=== PATIENT | male | born 1945 | race African-American/Black ===

== ENCOUNTER 2016-10-18 17:30 | Inpatient (IN) | payer MEDICARE, MEDICAID ==
[~2016-10-18] VITALS: Ht 182.9 cm; Wt 80.7 kg
[~2016-10-18 17:30] MED LIST: CLON0.1T14 PO; IPRA3AMP9 INH; KEPP500 PO; LEVO250T2 PO; LEVVL SUBCUT; LOT10 PO; Thiamine Hcl PO; Tramadol Hcl PO; [UNRECOGNIZED DRUG - REMARK] XX
[2016-10-18 18:24] VITALS: BP 163/83
[2016-10-18 19:06] VITALS: BP 163/83
[2016-10-18 20:00] VITALS: BP 150/94
[2016-10-18 20:30] VITALS: BP 110/68
[2016-10-18] MEDS ORDERED: HYDROCODONE/ACETAMINOPHEN 5/325MG TABLET PO PRN (20:30)
[2016-10-18] MEDS ORDERED: CLONIDINE 0.1MG TABLET PO PRN ×2 (20:30)
[2016-10-18] MEDS ORDERED: DOCUSATE SODIUM 100MG CAPSULE PO PRN (20:30)
[2016-10-18] MEDS ORDERED: ACETAMINOPHEN 650MG SUPP PR PRN (20:30)
[2016-10-18] MEDS ORDERED: GUAIFENESIN 200MG/10ML SUGAR FREE UDC PO PRN (20:30)
[2016-10-18] MEDS ORDERED: ACETAMINOPHEN 650MG/20.3ML UDC GT PRN (20:30)
[2016-10-18] MEDS ORDERED: ONDANSETRON HCL 4MG/2ML VIAL IV PRN (20:30)
[2016-10-18] MEDS ORDERED: IPRATROPIUM/ALBUTEROL 0.5-3(2.5)MG/3ML NEB INH PRN (20:30)
[2016-10-18] MEDS ORDERED: NA PHOS,M-B/NA PHOS,DI-BA ENEMA 118ML PR PRN (20:30)
[2016-10-18] MEDS ORDERED: DIPHENHYDRAMINE 50MG/ML VIAL IV PRN (20:30)
[2016-10-18] MEDS ORDERED: MAGNESIUM/ALUMINUM HYDROXIDE/SIMETHICONE 30ML UDC PO PRN (20:30)
[2016-10-18] MEDS: BENAZEPRIL 10MG TABLET PO SCH (20:30)
[2016-10-18] MEDS: SODIUM CHLORIDE 0.9% INJ 3ML FLUSH IVF SCH (22:29)
[2016-10-18] MEDS: ACETAMINOPHEN 325MG TABLET PO PRN (22:29)
[2016-10-18] MEDS: LEVETIRACETAM 500MG TABLET PO SCH (22:29)
[2016-10-19] MEDS: IPRATROPIUM/ALBUTEROL 0.5-3(2.5)MG/3ML NEB HHN SCH ×3 (03:19→21:25)
[2016-10-19 06:48] LABS: HEMATOCRIT. 37.2 % (42.0-52.0); HEMOGLOBIN. 12.8 g/dL (14.0-18.0); MEAN CORPUSCULAR HEMOGLOBIN 32.9 pg (28.0-32.0); MEAN CORPUSCULAR HGB CONC 34.5 g/dL (31.0-37.0); MEAN CORPUSCULAR VOLUME 95.5 fL (80.0-94.0); MEAN PLATELET VOLUME 7.7 fl (7.4-10.4); PLATELET 215 x1000/uL (130-400); WHITE BLOOD COUNT 4.2 x1000/uL (4.5-11.0)
[2016-10-19] MEDS: SODIUM CHLORIDE 0.9% INJ 3ML FLUSH IVF SCH ×3 (06:55→22:46)
[2016-10-19 07:12] LABS: DIFFERENTIAL COMMENT 1
[2016-10-19 07:35] LABS: CHLORIDE 101 mEq/L (98-107); INDEX HEMOLYSI 1 (1-3); INDEX ICTERIC 1 (1-4); INDEX LIPEMIC 1 (1-3)
[2016-10-19 08:00] VITALS: BP 158/88
[2016-10-19 08:01] LABS: ALANINE AMINOTRANSFERASE 52 IU/L (13-61); ALBUMIN 2.2 g/dL (3.4-5.0); ANION GAP 11; CARBON DIOXIDE 28 mEq/L (21-32); HDL CHOLESTEROL 29 mg/dL (40-59); LDL CHOLESTEROL 42 mg/dL (5-100); TRIGLYCERIDE 65 mg/dL (0-150); UREA NITROGEN BLOOD 7 mg/dL (7-21); eGFR > 60 mL/min (>60)
[2016-10-19] MEDS: MULTIVITAMINS,THER W-MINERALS TABLET PO SCH (08:36)
[2016-10-19] MEDS: LEVETIRACETAM 500MG TABLET PO SCH ×2 (08:36→17:33)
[2016-10-19] MEDS: DOCUSATE SODIUM 100MG CAPSULE PO SCH ×2 (08:36→17:32)
[2016-10-19] MEDS: BENAZEPRIL 10MG TABLET PO SCH (10:45)
[2016-10-19] MEDS: INSULIN DETEMIR UD 100 UNITS/ML SYR SUBCUT SCH (10:53)
[2016-10-19] MEDS: LEVOFLOXACIN 250MG TABLET PO SCH (11:03)
[2016-10-19] MEDS ORDERED: DEXTROSE 50% WATER 50ML SYRINGE IV PRN (13:15)
[2016-10-19] MEDS ORDERED: POTASSIUM CHLORIDE 20MEQ TABLET SR PO NR (13:45)
[2016-10-19 16:46] LABS: INR 1.8; PROTHROMBIN TIME 18.7 sec
[2016-10-19 16:58] LABS: PLATELET ESTIMATE NORMAL
[2016-10-19] MEDS: BLOOD SUGAR DIAGNOSTIC STRIP TEST SCH ×2 (17:33→21:18)
[2016-10-19] MEDS: INSULIN LISPRO 100 UNITS/ML SUBCUT SCH ×2 (17:56→21:00)
[2016-10-19] MEDS ORDERED: WARFARIN SODIUM 5MG TABLET PO SCH (18:00)
[2016-10-19 20:00] VITALS: BP 128/95
[2016-10-19] MEDS: ACETAMINOPHEN 325MG TABLET PO PRN (21:39)
[2016-10-20] MEDS: IPRATROPIUM/ALBUTEROL 0.5-3(2.5)MG/3ML NEB HHN SCH ×3 (01:14→13:32)
[2016-10-20] MEDS: SODIUM CHLORIDE 0.9% INJ 3ML FLUSH IVF SCH ×2 (06:01→12:51)
[2016-10-20] MEDS: BLOOD SUGAR DIAGNOSTIC STRIP TEST SCH ×3 (06:02→17:12)
[2016-10-20] MEDS: INSULIN LISPRO 100 UNITS/ML SUBCUT SCH ×3 (06:02→17:58)
[2016-10-20 06:42] LABS: INR 1.7; PROTHROMBIN TIME 17.9 sec
[2016-10-20 08:00] VITALS: BP 156/88
[2016-10-20] MEDS: DOCUSATE SODIUM 100MG CAPSULE PO SCH ×2 (08:49→17:00)
[2016-10-20] MEDS: LEVETIRACETAM 500MG TABLET PO SCH ×2 (08:54→17:47)
[2016-10-20] MEDS: MULTIVITAMINS,THER W-MINERALS TABLET PO SCH (08:54)
[2016-10-20] MEDS: BENAZEPRIL 10MG TABLET PO SCH (08:55)
[2016-10-20] MEDS: INSULIN DETEMIR UD 100 UNITS/ML SYR SUBCUT SCH (09:12)
[2016-10-20] MEDS ORDERED: HALOPERIDOL 5MG TABLET PO NR (11:15)
[2016-10-20] MEDS: LEVOFLOXACIN 250MG TABLET PO SCH (12:43)
[2016-10-20] MEDS ORDERED: HALOPERIDOL 1MG TABLET PO PRN (14:45)
[2016-10-20] MEDS ORDERED: WARFARIN SODIUM 3MG TABLET PO SCH (18:00)
[2016-10-20 18:42] VITALS: BP 156/88
[2016-10-20 18:53] VITALS: BP 150/90
[2016-10-20] MEDS ORDERED: RISPERIDONE 1MG TABLET PO SCH (21:00)
[2016-10-22] MEDS ORDERED: QUET25TA PO (09:01)
[2016-10-23] MEDS ORDERED: WARF5TAB76 PO (16:50)
[2016-10-23] MEDS ORDERED: METF-240 PO (16:51)
== END 2016-10-20 19:20 | disposition short-term general hospital (02) | DRG 64 ==
PROVIDERS: ADMIT Psychiatry & Neurology Neurology; ATTEND Family Medicine
DX: I63.9 Cerebral infarction, unspecified (principal); G93.40 Encephalopathy, unspecified; J96.00 Acute respiratory failure, unspecified whether with hypoxia or hypercapnia; E44.0 Moderate protein-calorie malnutrition; I82.622 Acute embolism and thrombosis of deep veins of left upper extremity; B19.20 Unspecified viral hepatitis C without hepatic coma; I10 Essential (primary) hypertension; K80.20 Calculus of gallbladder without cholecystitis without obstruction; M13.0 Polyarthritis, unspecified; R62.7 Adult failure to thrive; F17.210 Nicotine dependence, cigarettes, uncomplicated; T14.8 Other injury of unspecified body region; F06.31 Mood disorder due to known physiological condition with depressive features; F06.8 Other specified mental disorders due to known physiological condition; E11.42 Type 2 diabetes mellitus with diabetic polyneuropathy; Z88.0 Allergy status to penicillin; Z98.1 Arthrodesis status; Z68.24 Body mass index [BMI] 24.0-24.9, adult; Z79.01 Long term (current) use of anticoagulants
CPT/HCPCS: 36415; 80053; 80061; 82962; 85025; 85610; 92523; 97116; 97162; 97167; 97530; 97532; 97535; J1630; J1815; J7620

== ENCOUNTER 2016-11-11 16:01 | Emergency (ER) | payer MEDICARE, MEDICAID ==
[~2016-11-11] VITALS: Ht 182.9 cm; Wt 89.0 kg
[~2016-11-11 16:01] MED LIST changes: -LEVO250T2 PO; +METF500T4 PO; +QUET25TA PO; +WARF5TAB76 PO
[2016-11-11] MEDS ORDERED: SODIUM CHLORIDE 0.9% 500 ML IV ONE (18:34)
[2016-11-11 19:16] LABS: CLARITY URINE CLEAR (CLEAR); COLOR URINE DARK YELLOW (YELLOW); GLUCOSE URINE 2+ (NEGATIVE); KETONES URINE TRACE (NEGATIVE); LEUKOCYTE ESTERASE URINE TRACE (NEGATIVE); NITRITE URINE NEGATIVE (NEGATIVE); OCCULT BLOOD URINE NEGATIVE (NEGATIVE); PROTEIN URINE NEGATIVE (NEGATIVE); SPECIFIC GRAVITY URINE 1.023 (1.005-1.030)
[2016-11-11 19:35] LABS: BACTERIA URINE TRACE; RBC URINE NONE SEEN /hpf (0-2); SQUAMOUS EPITHELIAL CELL URINE RARE /lpf (RARE/1+); WBC URINE 0-2 /hpf (0-2)
[2016-11-11 19:48] LABS: INR 1.2; PROTHROMBIN TIME 12.4 sec
[2016-11-11 19:51] LABS: EOSINOPHILS % 4.1 % (0.0-5.0); HEMATOCRIT. 40.8 % (42.0-52.0); HEMOGLOBIN. 13.9 g/dL (14.0-18.0); LYMPHOCYTES % 47.8 % (20.0-50.0); MEAN CORPUSCULAR HEMOGLOBIN 33.2 pg (28.0-32.0); MEAN CORPUSCULAR HGB CONC 34.1 g/dL (31.0-37.0); MEAN CORPUSCULAR VOLUME 97.5 fL (80.0-94.0); MEAN PLATELET VOLUME 8.6 fl (7.4-10.4); MONOCYTES % 9.5 % (2.0-8.0); NEUTROPHILS % 37.6 % (40.0-76.0); PLATELET 117 x1000/uL (130-400); RED BLOOD CELL COUNT 4.18 mill/uL (4.7-6.1); RED CELL DISTRIBUTION WIDTH 14.1 % (11.6-14.6); WHITE BLOOD COUNT 4.8 x1000/uL (4.5-11.0)
[2016-11-11 19:57] LABS: ALANINE AMINOTRANSFERASE 47 IU/L (13-61); ALBUMIN 2.5 g/dL (3.4-5.0); ANION GAP 11; CALCIUM 8.6 mg/dL (8.5-10.1); CARBON DIOXIDE 29 mEq/L (21-32); CHLORIDE 105 mEq/L (98-107); INDEX HEMOLYSI 1 (1-3); INDEX ICTERIC 1 (1-4); INDEX LIPEMIC 1 (1-3); LIPASE 298 IU/L (73-393); UREA NITROGEN BLOOD 7 mg/dL (7-21); eGFR > 60 mL/min (>60)
[2016-11-11 19:59] LABS: TROPONIN I < 0.02 ng/mL (0.00-0.04)
[2016-11-12] MEDS ORDERED: CLONIDINE 0.1MG TABLET PO ONE (00:30)
[2016-11-12 02:30] VITALS: BP 165/94
== END 2016-11-12 02:30 | disposition home or self-care (01) ==
LOC: ER 16:03
DX: R42 Dizziness and giddiness (principal); R53.1 Weakness; M19.90 Unspecified osteoarthritis, unspecified site; E11.9 Type 2 diabetes mellitus without complications; I10 Essential (primary) hypertension; F17.210 Nicotine dependence, cigarettes, uncomplicated; Z88.0 Allergy status to penicillin; Z79.4 Long term (current) use of insulin; Z79.1 Long term (current) use of non-steroidal anti-inflammatories (NSAID); Z79.899 Other long term (current) drug therapy
CPT/HCPCS: 36415; 70450; 71010; 80053; 81001; 83690; 84484; 85025; 85610; 93005; 96360; 96361; 99285; J7030; J7040

== ENCOUNTER 2017-04-10 19:54 | Emergency (ER) | payer MEDICARE, MEDICAID ==
[~2017-04-10] VITALS: Ht 182.9 cm; Wt 79.0 kg
[~2017-04-10 19:54] MED LIST changes: +DUONEB3 ML INH; -IPRA3AMP9 INH
[2017-04-10] MEDS ORDERED: SODIUM CHLORIDE 0.9% 1000ML BAG (SEPSIS BOLUS) IV ONE (20:15)
[2017-04-10 21:05] LABS: BASOPHILS % 1.1 % (0.0-2.0); EOSINOPHILS % 2.9 % (0.0-5.0); HEMATOCRIT. 41.7 % (42.0-52.0); LYMPHOCYTES % 51.1 % (20.0-50.0); MEAN CORPUSCULAR HEMOGLOBIN 32.9 pg (28.0-32.0); MEAN CORPUSCULAR VOLUME 97.5 fL (80.0-94.0); MEAN PLATELET VOLUME 8.4 fl (7.4-10.4); MONOCYTES % 9.6 % (2.0-8.0); NEUTROPHILS % 35.3 % (40.0-76.0); PLATELET 102 x1000/uL (130-400); RED BLOOD CELL COUNT 4.27 mill/uL (4.7-6.1); RED CELL DISTRIBUTION WIDTH 14.7 % (11.6-14.6)
[2017-04-10 21:06] LABS: CHLORIDE 108 mEq/L (98-107)
[2017-04-10 21:07] LABS: INR 1.3; PROTHROMBIN TIME 13.3 sec (9.4-11.6)
[2017-04-10 21:15] LABS: CARBON DIOXIDE 21 mEq/L (21-32); ETHANOL BLOOD 26 mg/dL
[2017-04-10 23:19] LABS: CLARITY URINE CLEAR (CLEAR); COLOR URINE YELLOW (YELLOW); GLUCOSE URINE NEGATIVE (NEGATIVE); KETONES URINE NEGATIVE (NEGATIVE); LEUKOCYTE ESTERASE URINE NEGATIVE (NEGATIVE); NITRITE URINE NEGATIVE (NEGATIVE); OCCULT BLOOD URINE NEGATIVE (NEGATIVE); PROTEIN URINE NEGATIVE (NEGATIVE); SPECIFIC GRAVITY URINE 1.015 (1.005-1.030)
[2017-04-10 23:40] VITALS: BP 155/76
== END 2017-04-10 23:43 | disposition home or self-care (01) ==
LOC: ER 21:13
DX: R53.1 Weakness (principal); F10.129 Alcohol abuse with intoxication, unspecified; R00.1 Bradycardia, unspecified; I10 Essential (primary) hypertension; E11.9 Type 2 diabetes mellitus without complications; F17.210 Nicotine dependence, cigarettes, uncomplicated; Y90.1 Blood alcohol level of 20-39 mg/100 ml; Z79.4 Long term (current) use of insulin; Z88.0 Allergy status to penicillin; Z79.01 Long term (current) use of anticoagulants
CPT/HCPCS: 36415; 71010; 80053; 81003; 83605; 85025; 85610; 87040; 87086; 93005; 96360; 96361; 99285; G0482; J7030